=== PATIENT | male | born 1975 | race Caucasian/White ===

== ENCOUNTER 2018-02-17 10:26 | Emergency (ER) | payer SELFPAY ==
[2018-02-17 10:46] VITALS: BP 129/82; RESP 16; TEMP 98.1; O2SAT 99
[2018-02-17 11:59] LABS: BASO % 0.3 % (0.0-2.0); EOS # 0.1 K/uL (0.0-0.7); EOS % 1.7 % (0.0-4.0); HEMOGLOBIN 14.7 g/dL (12.0-18.0); LYMPH # 0.8 K/uL (1.0-4.3); LYMPH % 14.5 % (20.0-40.0); MEAN CORPUSCULAR HEMOGLOBIN 29.8 pg (27.0-31.0); MEAN CORPUSCULAR HGB CONC 33.1 g/dL (33.0-37.0); MEAN PLATELET VOLUME 10.1 fl (7.2-11.7); MONO # 0.5 K/uL (0.0-0.8); MONO % 10.4 % (0.0-10.0); NEUT # 3.8 K/uL (1.8-7.0); NEUT % 73.1 % (50.0-75.0); NRBC % 0.1 % (0.0-0.0); RBC 4.93 Mil/uL (4.40-5.90); RED CELL DISTRIBUTION WIDTH 12.8 % (11.5-14.5); WHITE BLOOD COUNT 5.2 K/uL (4.8-10.8)
[2018-02-17 13:33] LABS: BLOOD UREA NITROGEN 18 mg/dl (9-20); CALCIUM 9.9 mg/dL (8.4-10.2); GFR NON-AFRICAN AMERICAN > 60
--- NOTE | 2018-02-17 13:58 | ED PDOC ---
HPI: General Adult Time Seen by Provider: 02/17/18 10:43 Chief Complaint (Nursing): Palpitations Chief Complaint (Provider): palpitations History Per: Patient Additional Complaint(s): 42yo male presents c/o palpitations ongoing intermittently since this morning. States recently homeless and anxious over where he is going to stay. Denies syncope, fever, cough, chest pain, headache, change in vision, speech, change in bowels or abd pain. Denies suicidal thoughts or substance abuse. Past Medical History Reviewed: Historical Data, Nursing Documentation, Vital Signs Vital Signs: Last Vital Signs Temp 98.1 F 02/17/18 10:43 Pulse 83 02/17/18 10:43 Resp 16 02/17/18 10:43 BP 129/82 02/17/18 10:43 Pulse Ox 99 02/17/18 10:43 - Medical History PMH: Denies: Diabetes, Hepatitis, HIV, HTN, Seizures, Sexually Transmitted Disease - Family History Family History: States: Unknown Family Hx - Living Arrangements Living Arrangements: Other (recently homeless) - Social History Drugs: Denies - Allergies Allergies/Adverse Reactions: Allergies Allergy/AdvReac Type Severity Reaction Status Date / Time No Known Allergies Allergy Verified 02/17/18 10:45 Review of Systems ROS Statement: Except As Marked, All Systems Reviewed And Found Negative Constitutional: Negative for: Fever Cardiovascular: Positive for: Palpitations. Negative for: Chest Pain, Paroxysmal Noc. Dyspnea Respiratory: Negative for: Shortness of Breath, SOB with Exertion Gastrointestinal: Negative for: Nausea, Abdominal Pain Genitourinary Male: Negative for: Frequency Musculoskeletal: Negative for: Neck Pain, Back Pain Skin: Negative for: Rash, Lesions, Jaundice Neurological: Negative for: Weakness, Numbness Psych: Positive for: Anxiety, Depression. Negative for: Suicidal ideation Physical Exam - Reviewed Nursing Documentation Reviewed: Yes Vital Signs Reviewed: Yes - Physical Exam Appears: Positive for: Well, Non-toxic, No Acute Distress Head Exam: Positive for: ATRAUMATIC, NORMAL INSPECTION, NORMOCEPHALIC Skin: Positive for: Normal Color, Warm, DRY Eye Exam: Positive for: EOMI, Normal appearance, PERRL ENT: Positive for: Normal ENT Inspection Neck: Positive for: Normal, Painless ROM Cardiovascular/Chest: Positive for: Regular Rate, Rhythm Respiratory: Positive for: CNT, Normal Breath Sounds Gastrointestinal/Abdominal: Positive for: Normal Exam, Soft Back: Positive for: Normal Inspection Extremity: Positive for: Normal ROM Neurologic/Psych: Positive for: Alert, Oriented, Mood/Affect (anxious, fair insight, cooperative clear speech). Negative for: Aphasia - Laboratory Results Result Diagrams: 02/17/18 11:50 02/17/18 11:50 - ECG ECG: Positive for: Interpreted By Me ECG Rhythm: Positive for: Normal QRS, Normal ST Segment, Sinus Rhythm Rate: 86 O2 Sat by Pulse Oximetry: 99 Pulse Ox Interpretation: Normal Medical Decision Making Medical Decision Making: labs reviewed and clinically unremarkable HR on re-eval 92, anxious appearing but denies suicidal thoughts. Crisis eval performed, cleared for DC with followup psych and given snf information. Ambulatory with pleasant mood and no complaints on discharge. Disposition - Clinical Impression Clinical Impression: Palpitations, Anxiety - Patient ED Disposition Is Patient to be Admitted: No - Disposition Disposition: Routine/Home Disposition Time: 12:40 Condition: STABLE Additional Instructions: Followup with your doctor for further testing. Return to ER for any worse or new symptoms. Instructions: Palpitations, Anxiety, Adult (DC) Forms: [facility] ([place])
[2018-02-17 14:00] VITALS: PULSE 86
--- NOTE | 2018-02-17 17:19 | CARD ---
APPROVED REPORT Date of service: 02/17/2018 EKG Measurement Heart [id number] <Conclusion> Normal sinus rhythm Normal ECG
== END 2018-02-17 14:02 | disposition home or self-care (01) ==
LOC: H.ER 10:26
DX: R00.2 Palpitations (principal); F41.9 Anxiety disorder, unspecified; Z00.8 Encounter for other general examination
CPT/HCPCS: 80048; 84484; 85025; 93005; 99284; G0480